=== PATIENT | female | born 1980 | race Caucasian/White ===

== ENCOUNTER 2016-11-18 08:01 | Emergency (ER) | payer OTHER ==
[2016-11-18 08:13] VITALS: BP 104/62; PULSE 69; RESP 20; TEMP 96.6; O2SAT 99
--- NOTE | 2016-11-18 09:18 | ED PDOC ---
HPI: General Adult Time Seen by Provider: 11/18/16 08:09 Chief Complaint (Nursing): Back Pain Chief Complaint (Provider): Painful Rash History Per: Patient History/Exam Limitations: no limitations Onset/Duration Of Symptoms: Days (x7 days) Have you had recent travel within the past 21 days to any of the following countries: [place], [place], [place] or [place]?: No Current Symptoms Are (Timing): Still Present Additional Complaint(s): Valorie Baez, 36 year old female, presents to the ED complaining of a painful rash below her right breast and on her right back x1 week. The patient states that the pain is getting worse and the rash is still present. The patient states the rash is not generalized anywhere else. Denies fever, headache or any other medical problems. Past Medical History Reviewed: Historical Data, Nursing Documentation, Vital Signs Vital Signs: Last Vital Signs Temp 96.6 F L 11/18/16 08:12 Pulse 69 11/18/16 08:12 Resp 20 11/18/16 08:12 BP 104/62 11/18/16 08:12 Pulse Ox 99 11/18/16 10:40 - Medical History PMH: Gall Bladder Disease Denies: Chronic Kidney Disease - Surgical History Surgical History: (x 1) - Family History Family History: States: Unknown Family Hx - Immunization History Hx Tetanus Toxoid Vaccination: No Hx Influenza Vaccination: No Hx Pneumococcal Vaccination: No - Home Medications Home Medications: Ambulatory Orders Medication Instructions Recorded Docusate [Colace] 100 mg PO BID #20 cap 06/10/16 Ibuprofen [Motrin Tab] 800 mg PO Q8 PRN #20 tab 06/10/16 oxyCODONE/Acetaminophen [Percocet 1 tab PO Q6 PRN #20 tab 06/10/16 5/325 mg Tab] Acyclovir 800 mg PO 5XD 7 Days 11/18/16 oxyCODONE/Acetaminophen [Percocet 1 tab PO Q6 PRN #12 tab 11/18/16 5/325 mg Tab] - Allergies Allergies/Adverse Reactions: Allergies Allergy/AdvReac Type Severity Reaction Status Date / Time No Known Allergies Allergy Verified 11/18/16 08:11 Review of Systems ROS Statement: Except As Marked, All Systems Reviewed And Found Negative Constitutional: Negative for: Fever Skin: Positive for: Rash (Rash on right breast and right back) Neurological: Negative for: Headache Physical Exam - Reviewed Nursing Documentation Reviewed: Yes Vital Signs Reviewed: Yes - Physical Exam Appears: Positive for: Non-toxic, No Acute Distress Head Exam: Positive for: ATRAUMATIC, NORMAL INSPECTION, NORMOCEPHALIC Skin: Positive for: Normal Color, Warm, Dry, Rash (righ subcostal area 5cm Oval vesicular rash, tender no discharge; 10cm Oval vesicular 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 Negative for: Tachycardia Respiratory: Positive for: Normal Breath Sounds. Negative for: Wheezing, Respiratory Distress Gastrointestinal/Abdominal: Positive for: Normal Exam, Bowel Sounds, Soft. Negative for: Tenderness, Guarding Back: Positive for: Normal Inspection Extremity: Positive for: Normal ROM. Negative for: Tenderness, Pedal Edema, Deformity, Swelling Neurologic/Psych: Positive for: Alert, Oriented, Gait - ECG O2 Sat by Pulse Oximetry: 99 (RA) Pulse Ox Interpretation: Normal Medical Decision Making Medical Decision Makin Initial Impression: 36 year old female presenting with vesicular rash Differentials: Shingles synonymous to H-zoster infection 0830 Patient will be given Rx for anti-virals and percocet for severe pain and discharged with instructions to follow up with PMD for pain management. Scribe Attestation Documented by Jelena Najera acting as a scribe for Honey Goldberg MD. Provider Attestation: All medical record entries made by the Scribe were at my direction and personally dictated by me. I have reviewed the chart and agree that the record accurately reflects my personal performance of the history, physical exam, medical decision making, and the department course for this patient. I have also personally directed, reviewed, and agree with the discharge instructions and disposition. Disposition - Clinical Impression Clinical Impression: Shingles - Patient ED Disposition Is Patient to be Admitted: No Doctor Will See Patient In The: Office Counseled Patient/Family Regarding: Studies Performed, Diagnosis, Need For Followup - Disposition Referrals: [facility] [Outside] Disposition: Routine/Home Disposition Time: 10:36 Condition: GOOD Additional Instructions: Take your medications as instructed. Follow up with your PCP in 2-3 days. [place] [facility] medicamentos segn las instrucciones. Siga con harper mdico en 2-3 gunter. Prescriptions: Acyclovir 800 mg PO 5XD 7 Days oxyCODONE/Acetaminophen [Percocet 5/325 mg Tab] 1 tab PO Q6 PRN #12 tab PRN Reason: Pain, Severe (8-10) Instructions: Allie (ED) Print Language: NIGERIAN
== END 2016-11-18 11:01 | disposition home or self-care (01) ==
LOC: H.ER 08:01
DX: B02.9 Zoster without complications (principal)